=== PATIENT | male | born 1940 | race Caucasian/White ===

== ENCOUNTER 2021-03-10 03:25 | Outpatient (CLI) | payer MEDICARE, SELFPAY ==
[2021-03-10 08:12] LABS: Abs Immature Grans 0.05 10^3/uL (0.0-0.06); Absolute Basophil Count 0.08 10^3/uL (0.0-0.2); Absolute Eosinophil Count 0.53 10^3/uL (0.0-0.7); Absolute Lymphocyte Count 0.78 10^3/uL (1.2-3.4); Absolute Neutrophil Count 7.14 10^3/uL (1.2-6.7); Basophils % 0.8; Eosinophils % 5.4; HCT 30.9 % (40.0-50.0); Immature Grans % 0.5; Lymphocytes % 7.9; MCH 30.1 pg (27.0-33.0); MCHC 32.4 % (32.0-36.0); MCV 93.1 fL (80-95); MPV 8.4 fL (8.0-11.0); Monocytes % 13.2; Neutrophils % 72.2; Nucleated RBC 0 %; Platelet Count 381 10^3/uL (130-400); RBC 3.32 10^6/uL (4.36-5.78); RDW 15.3 % (11.8-14.1); RDW-SD 51.8 fL; WBC 9.88 10^3/uL (4.4-10.8)
[2021-03-10 08:40] LABS: ALT 19 U/L (16-63); AST 24 U/L (15-37); Albumin 3.3 g/dL (3.4-5.0); Alkaline Phosphatase 61 U/L (46-116); Anion Gap 11.9 mmol/L (3-11); BUN 40 mg/dL (7-18); Bilirubin, Total 0.3 mg/dL (0.2-1.0); CO2 23.1 mmol/L (21.0-32.0); CREATININE 1.9 mg/dL (0.70-1.30); Calcium 9.2 mg/dL (8.5-10.1); Chloride 108 mmol/L (98-107); Estimated GFR 34.28 (mL/min/1.73m2); Glucose 107 mg/dL (74-106); Potassium 4.4 mmol/L (3.5-5.1); Sodium 143 mmol/L (136-145); Total Protein 7.4 g/dL (6.4-8.2)
== END 2021-03-10 03:26 | disposition home or self-care (01) ==
LOC: LBO 03:25
PROVIDERS: PCP Neuromusculoskeletal Medicine & OMM; Visit Provider Internal Medicine Medical Oncology
DX: C34.12 Malignant neoplasm of upper lobe, left bronchus or lung (principal)
CPT/HCPCS: 36415; 80053; 85025